=== PATIENT | male | born 1985 | race Caucasian/White ===

== ENCOUNTER 2019-05-08 11:04 | Emergency (ER) | payer OTHER ==
[~2019-05-08] VITALS: Ht 182.9 cm; Wt 108.9 kg
[~2019-05-08 11:04] MED LIST: ABAC300; AMOCLA875 PO; AMOX500 PO; ARIP10; ARIP10 PO; AZIT500 PO; Amoxicillin500 MG PO; BACL10 PO; BUPR150ER; Bactrim Ds Tab1 EACH PO; CEPH500 PO; CHLO25 PO; CLOT1TC TOP; CODGUAEL PO; CRUTCH3 USE; FLUO10; FLUO10 PO; Flagyl500 MG PO; GABA300 PO; HYDACE5 PO; HYDACE7.5 PO; HYDPAM25 PO; IBUHYD PO; IBUP600 PO; IBUP800; IBUP800 PO; Keflex500 MG PO; LAMO25; LORA1 PO; METPRE4DP PO; NAPR500 PO; OXYACE5T PO; OXYACE7.5T PO; PENVK500 PO; PROACE100 PO; PROM25 PO; PROZAC20 MG PO; Percocet 5-3251 EACH PO; QUET25; QUET300 PO; RISP1 PO; RXANTBENOT AS; RXHYDACE PO; RXTRAM50 PO; Robaxin500 MG PO; SULTRIDS PO; TRAM50 PO; VENL75; Valium5 MG PO
[2019-05-08 13:40] LABS: BASOPHILS ABSOLUTE AUTO 0.03 K/mm3 (0.00-0.23); BASOPHILS PERCENT AUTO 1 % (0-2); EOSINOPHILS ABSOLUTE AUTO 0.09 K/mm3 (0.00-0.68); EOSINOPHILS PERCENT AUTO 2 % (0-6); Hematocrit 45.2 % (37.0-53.0); Hemoglobin 15.9 g/dL (13.5-17.5); IMMATURE GRAN ABSOLUTE AUTO 0.02 K/mm3 (0.00-0.10); IMMATURE GRAN PERCENT AUTO 0 % (0-1); LYMPHOCYTES ABSOLUTE AUTO 1.07 K/mm3 (0.84-5.20); LYMPHOCYTES PERCENT AUTO 18 % (21-46); MONOCYTES ABSOLUTE AUTO 0.69 K/mm3 (0.16-1.47); MONOCYTES PERCENT AUTO 12 % (4-13); Mean Corpuscular HGB 30.3 pg (26.0-34.0); Mean Corpuscular HGB Conc 35.2 g/dL (31.5-36.5); Mean Corpuscular Volume 86 fL (80-100); Mean Platelet Volume 9.5 fL (9.1-12.4); NEUTROPHILS ABSOLUTE AUTO 3.97 K/mm3 (1.96-9.15); NEUTROPHILS PERCENT AUTO 68 % (41-73); Platelet Count 194 K/mm3 (150-400); RDW Coefficient Variation 12.5 % (11.7-14.2); RDW Standard Deviation 39.2 fL (35.1-46.3); Red Blood Cell Count 5.25 M/mm3 (4.30-5.90); White Blood Cell Count 5.87 K/mm3 (4.00-11.30)
[2019-05-08 13:53] LABS: Anion Gap 6 mmol/L (6-16); Blood Urea Nitrogen 12 mg/dL (8-24); Bun/Creatinine Ratio 13.9 (12.0-20.0); CO2, Blood 26 mmol/L (21-32); Chloride, Blood 103 mmol/L (98-108); Creatinine, Blood 0.86 mg/dL (0.60-1.20); Glomerular Filtration Rate >60 (60-); Glucose, Blood 101 mg/dL (70-99); Potassium, Blood 3.8 mmol/L (3.5-5.5); Sodium, Blood 135 mmol/L (136-145)
[2019-05-08] MEDS ORDERED: Bactrim Ds Tab1 EACH PO (15:22)
[2019-05-08] MEDS ORDERED: KETO10 PO (15:22)
[2019-05-08] MEDS ORDERED: Keflex500 MG PO (15:22)
== END 2019-05-08 15:38 | disposition home or self-care (01) ==
LOC: ER 11:04
PROVIDERS: Physician Assistant
DX: M25.521 Pain in right elbow (principal); F31.9 Bipolar disorder, unspecified; F17.200 Nicotine dependence, unspecified, uncomplicated
CPT/HCPCS: 36415; 73080; 73201; 80048; 85025; 85651; 86140; 96361; 96374-59; 99284-25; J1885; J7120; Q9967

== ENCOUNTER 2019-05-11 12:01 | Emergency (ER) | payer OTHER ==
[~2019-05-11] VITALS: Ht 182.9 cm; Wt 108.9 kg
[~2019-05-11 12:01] MED LIST changes: +KETO10 PO
[2019-05-11 13:17] LABS: BASOPHILS ABSOLUTE AUTO 0.05 K/mm3 (0.00-0.23); BASOPHILS PERCENT AUTO 1 % (0-2); EOSINOPHILS ABSOLUTE AUTO 0.13 K/mm3 (0.00-0.68); EOSINOPHILS PERCENT AUTO 2 % (0-6); Hematocrit 43.5 % (37.0-53.0); Hemoglobin 14.6 g/dL (13.5-17.5); IMMATURE GRAN ABSOLUTE AUTO 0.03 K/mm3 (0.00-0.10); IMMATURE GRAN PERCENT AUTO 1 % (0-1); LYMPHOCYTES ABSOLUTE AUTO 1.62 K/mm3 (0.84-5.20); LYMPHOCYTES PERCENT AUTO 25 % (21-46); MONOCYTES PERCENT AUTO 9 % (4-13); Mean Corpuscular HGB 30.4 pg (26.0-34.0); Mean Corpuscular HGB Conc 33.6 g/dL (31.5-36.5); Mean Platelet Volume 9.3 fL (9.1-12.4); NEUTROPHILS ABSOLUTE AUTO 4.05 K/mm3 (1.96-9.15); NEUTROPHILS PERCENT AUTO 62 % (41-73); Platelet Count 253 K/mm3 (150-400); RDW Coefficient Variation 12.4 % (11.7-14.2); RDW Standard Deviation 41.5 fL (35.1-46.3); Red Blood Cell Count 4.81 M/mm3 (4.30-5.90); White Blood Cell Count 6.48 K/mm3 (4.00-11.30)
[2019-05-11 13:29] LABS: Mean Corpuscular Volume 90 fL (80-100)
[2019-05-11 13:38] LABS: Alanine Aminotransfer (ALT/SGP 30 U/L (12-78); Albumin, Blood 3.5 g/dL (3.4-5.0); Albumin/Globulin Ratio 0.8 (0.8-1.8); Alk Phos 103 U/L (50-136); Anion Gap 8 mmol/L (6-16); Aspartate Aminotrans (AST/SGOT 26 U/L (12-37); Bilirubin, Total 0.4 mg/dL (0.1-1.0); Blood Urea Nitrogen 15 mg/dL (8-24); Bun/Creatinine Ratio 15.4 (12.0-20.0); CO2, Blood 21 mmol/L (21-32); Calcium, Blood 9.1 mg/dL (8.5-10.1); Chloride, Blood 109 mmol/L (98-108); Creatinine, Blood 0.97 mg/dL (0.60-1.20); Globulin, Blood 4.5 g/dL (2.2-4.0); Glomerular Filtration Rate >60 (60-); Glucose, Blood 88 mg/dL (70-99); Potassium, Blood 4.7 mmol/L (3.5-5.5); Sodium, Blood 138 mmol/L (136-145)
[2019-05-11] MEDS ORDERED: Ultram50 MG PO (14:35)
[2019-05-11] MEDS ORDERED: NAPR550 PO (14:35)
== END 2019-05-11 14:49 | disposition home or self-care (01) ==
LOC: ER 12:01
PROVIDERS: Physician Assistant
DX: M25.521 Pain in right elbow (principal); F31.9 Bipolar disorder, unspecified; F17.200 Nicotine dependence, unspecified, uncomplicated
CPT/HCPCS: 36415; 76882; 80053; 85025; 85651; 86140; 99284-25

== ENCOUNTER → 2019-12-22 | Outpatient (CLI) | payer OTHER ==
[~2019-12-22] MED LIST changes: +NAPR550 PO; +Ultram50 MG PO
== END | disposition home or self-care (01) ==
LOC: LAB SHORT 18:02 → LAB EV 18:02
DX: L02.416 Cutaneous abscess of left lower limb (principal)
CPT/HCPCS: 87070; 87077; 87147; 87186; 87205

== ENCOUNTER 2020-12-29 23:24 | Observation (INO) | payer OTHER ==
[~2020-12-29] VITALS: Ht 182.9 cm; Wt 111.6 kg
[2020-12-29] MEDS ORDERED: CYCL10 PO (23:55)
[2020-12-29] MEDS ORDERED: Prozac20 MG PO (23:55)
[2020-12-29] MEDS ORDERED: ARIP10 PO (23:56)
[2020-12-29] MEDS ORDERED: [UNRECOGNIZED DRUG - OTHER] PO (23:57)
[2020-12-30 00:20] LABS: Source, Urine Clean Catch
[2020-12-30 00:23] LABS: Blood, Urine 1+ (Neg); Glucose Qualitative, Urine Neg (Neg); Ketones, Urine 1+ (Neg); Leukocyte Esterase, Urine 1+ (Neg); Nitrite, Urine Pos (Neg); Protein, Urine 2+ (Neg); Urobilinogen, Urine 4+ (Normal)
[2020-12-30 00:28] LABS: Appearance, Urine Clear (Clear); Bilirubin, Urine 3+ (Neg); Color, Urine Amber (P-Yellow)
[2020-12-30 00:29] LABS: Bacteria Mod /hpf; Red Blood Cells, Urine 0-2 /hpf (0-2); Squamous Epithelial Cells Not Seen /hpf (Few); White Blood Cells, Urine 0-2 /hpf (0-5)
[2020-12-30 02:36] LABS: BASOPHILS ABSOLUTE AUTO 0.09 K/mm3 (0.00-0.23); BASOPHILS PERCENT AUTO 2 % (0-2); EOSINOPHILS ABSOLUTE AUTO 0.15 K/mm3 (0.00-0.68); EOSINOPHILS PERCENT AUTO 3 % (0-6); Hematocrit 43.9 % (37.0-53.0); Hemoglobin 15.1 g/dL (13.5-17.5); Mean Corpuscular HGB 30.4 pg (26.0-34.0); Mean Corpuscular HGB Conc 34.4 g/dL (31.5-36.5); Mean Corpuscular Volume 88 fL (80-100); Mean Platelet Volume 9.5 fL (9.1-12.4); Platelet Count 174 K/mm3 (150-400); RDW Coefficient Variation 12.7 % (11.7-14.2); RDW Standard Deviation 41.4 fL (35.1-46.3); Red Blood Cell Count 4.97 M/mm3 (4.30-5.90); White Blood Cell Count 4.41 K/mm3 (4.00-11.30)
[2020-12-30 02:37] LABS: IMMATURE GRAN ABSOLUTE AUTO 0.04 K/mm3 (0.00-0.10); IMMATURE GRAN PERCENT AUTO 1 % (0-1); LYMPHOCYTES ABSOLUTE AUTO 1.76 K/mm3 (0.84-5.20); LYMPHOCYTES PERCENT AUTO 40 % (21-46); MONOCYTES ABSOLUTE AUTO 0.51 K/mm3 (0.16-1.47); MONOCYTES PERCENT AUTO 12 % (4-13); NEUTROPHILS ABSOLUTE AUTO 1.86 K/mm3 (1.96-9.15); NEUTROPHILS PERCENT AUTO 42 % (41-73)
[2020-12-30 02:49] LABS: Alanine Aminotransfer (ALT/SGP 709 U/L (12-78); Albumin, Blood 3.5 g/dL (3.4-5.0); Albumin/Globulin Ratio 0.7 (0.8-1.8); Alk Phos 282 U/L (50-136); Anion Gap 6 mmol/L (6-16); Aspartate Aminotrans (AST/SGOT 310 U/L (12-37); Bilirubin, Total 2.5 mg/dL (0.1-1.0); Blood Urea Nitrogen 8 mg/dL (8-24); Bun/Creatinine Ratio 9.2 (12.0-20.0); CO2, Blood 28 mmol/L (21-32); Calcium, Blood 8.9 mg/dL (8.5-10.1); Chloride, Blood 103 mmol/L (98-108); Creatinine, Blood 0.87 mg/dL (0.60-1.20); Globulin, Blood 4.7 g/dL (2.2-4.0); Glomerular Filtration Rate >60 (60-); Glucose, Blood 121 mg/dL (70-99); Potassium, Blood 3.8 mmol/L (3.5-5.5); Sodium, Blood 137 mmol/L (136-145); Total Protein, Blood 8.2 g/dL (6.4-8.2)
[2020-12-30 03:44] LABS: Troponin I <0.015 ng/mL (0.000-0.040)
--- NOTE | 2020-12-30 07:36 | NUR ---
ER REPORT RECEIVED FROM BRITTNEY INGRAM. REPORT GIVEN TO PHIL QUEEN RN. PT ARRIVED TO ROOM VIA W/C. NO DISTRESS NOTED.
--- NOTE | 2020-12-30 11:00 | NUR ---
CARE COORDINATION REFERRAL - ADMIT:12/29/20 DISCHARGE: DX:BLOOD IN THE URINE, EPIGASTRIC PAIN, LEFT FLANK PAIN. CC: JUAN C CALL: PT AT HOME RESIDENCE: HOME CAREGIVER: SELF DX: PSYCHOTIC DISORDER, HIV EXPOSURE, METH USE, VIRAL HEP C, DME: NONE CCM: NONE HOME HEALTH: NONE
[2020-12-30 13:16] LABS: Influenza A, PCR NEGATIVE (NEGATIVE); Influenza B, PCR NEGATIVE (NEGATIVE); Resp Syncytial Virus, PCR NEGATIVE (NEGATIVE); SARS-Cov-2 (COVID-19) PCR, MMC NEGATIVE (NEGATIVE)
--- NOTE | 2020-12-30 13:30 | NUR ---
surgery: PT TO THE OR AT THIS TIME. 18G STARTED WITH LR AT TKO. PT VOIDED AND CHANGED INTO GOWN. SURGICAL PKT COMPLETED. COVID NEGATIVE. WILL CONT TO MONITOR WHEN RETURNS TO ROOM.
--- NOTE | 2020-12-30 13:30 | NUR ---
PT TO SDS FROM 231. CONFIRMS NPO STATUS. ABD AND GROIN PREPPED PER ORDERS. History, Chart, Medications and Allergies reviewed before start of procedure. Lungs clear T/O to Auscultation. VOIDS APPROX 100 CC OF ARLIN URINE.
--- NOTE | 2020-12-30 14:29 | NUR ---
12/30/20 1429 ATIFOLI PT RECEIVED SCHEULED DOSE OF ANTIBIOTIC PRIOR TO PROCEDURE, DR AWARE. NO NEW ORDERS AT THIS TIME.
--- NOTE | 2020-12-30 18:32 | NUR ---
PT POST OP TODAY FOR LAP JAYME. HYPERTENSIVE AT TIMES. PT HAS HAD 300CC URINE OUTPUT, DARK. NO BLOOD. IV FLUIDS RESUMED POST OP. GUY CLEAR DIET. PAIN MANAGED WITH PO PAIN MEDS. ABD GAUZE X4, CDI. NO NAUSEA. PT INDEP IN ROOM. USES CALL LIGHT APPROPRIATELY NEEDED.
--- NOTE | 2020-12-31 04:08 | NUR ---
SHIFT SUMMARY: PT POD#1 FOR LAP JAYME. LAP SITES C/D/I. PT MEDICATED WITH PO PAIN MEDS. PAIN WELL MANAGED THROUGHOUT NIGHT. DENIES N/V. PT GUY REGULAR DIET. INDEPENDENT IN ROOM. PT VOIDING ADEQUATE AMOUNT. URINE DARK AND CONCENTRATED. NO BLOOD NOTED. IVF INFUSING PER ORDERS.
[2020-12-31 05:17] LABS: BASOPHILS ABSOLUTE AUTO 0.05 K/mm3 (0.00-0.23); BASOPHILS PERCENT AUTO 1 % (0-2); EOSINOPHILS ABSOLUTE AUTO 0.02 K/mm3 (0.00-0.68); EOSINOPHILS PERCENT AUTO 0 % (0-6); Hematocrit 42.1 % (37.0-53.0); Hemoglobin 13.9 g/dL (13.5-17.5); Mean Corpuscular HGB 29.9 pg (26.0-34.0); Mean Corpuscular Volume 91 fL (80-100); Mean Platelet Volume 9.6 fL (9.1-12.4); Platelet Count 179 K/mm3 (150-400); RDW Coefficient Variation 12.9 % (11.7-14.2); RDW Standard Deviation 42.5 fL (35.1-46.3); Red Blood Cell Count 4.65 M/mm3 (4.30-5.90); White Blood Cell Count 8.86 K/mm3 (4.00-11.30)
[2020-12-31 05:29] LABS: IMMATURE GRAN ABSOLUTE AUTO 0.05 K/mm3 (0.00-0.10); IMMATURE GRAN PERCENT AUTO 1 % (0-1); LYMPHOCYTES ABSOLUTE AUTO 3.43 K/mm3 (0.84-5.20); LYMPHOCYTES PERCENT AUTO 39 % (21-46); MONOCYTES ABSOLUTE AUTO 0.42 K/mm3 (0.16-1.47); MONOCYTES PERCENT AUTO 5 % (4-13); NEUTROPHILS ABSOLUTE AUTO 4.89 K/mm3 (1.96-9.15); NEUTROPHILS PERCENT AUTO 55 % (41-73)
[2020-12-31 05:47] LABS: Alanine Aminotransfer (ALT/SGP 583 U/L (12-78); Albumin, Blood 2.8 g/dL (3.4-5.0); Albumin/Globulin Ratio 0.7 (0.8-1.8); Alk Phos 272 U/L (50-136); Anion Gap 8 mmol/L (6-16); Aspartate Aminotrans (AST/SGOT 211 U/L (12-37); Bilirubin, Total 2.2 mg/dL (0.1-1.0); Blood Urea Nitrogen 11 mg/dL (8-24); Bun/Creatinine Ratio 14.4 (12.0-20.0); CO2, Blood 26 mmol/L (21-32); Calcium, Blood 8.3 mg/dL (8.5-10.1); Chloride, Blood 104 mmol/L (98-108); Creatinine, Blood 0.76 mg/dL (0.60-1.20); Glomerular Filtration Rate >60 (60-); Glucose, Blood 168 mg/dL (70-99); Potassium, Blood 4.1 mmol/L (3.5-5.5); Sodium, Blood 138 mmol/L (136-145); Total Protein, Blood 6.8 g/dL (6.4-8.2)
--- NOTE | 2020-12-31 16:38 | NUR ---
Resumed care of patient
--- NOTE | 2021-01-01 03:14 | NUR ---
SHIFT SUMMARY: PT POD#2 FOR LAP JAYME. PT REPORTS PASSING FLATUS. HYPOACTIVE BT THROUGHOUT. PT INDEPENDENT IN ROOM. AMBULATED IN HALLWAY ONCE. DENIES PAIN THIS SHIFT AND NOT REQUIRING PAIN MEDICATION. DENIES N/V AND TOLERATING PO. AWAITING MORNING LABS. POSSIBLE DISCHARGE TODAY.
[2021-01-01 05:30] LABS: BASOPHILS ABSOLUTE AUTO 0.05 K/mm3 (0.00-0.23); BASOPHILS PERCENT AUTO 1 % (0-2); EOSINOPHILS ABSOLUTE AUTO 0.11 K/mm3 (0.00-0.68); EOSINOPHILS PERCENT AUTO 2 % (0-6); Hemoglobin 14.3 g/dL (13.5-17.5); IMMATURE GRAN ABSOLUTE AUTO 0.06 K/mm3 (0.00-0.10); IMMATURE GRAN PERCENT AUTO 1 % (0-1); LYMPHOCYTES ABSOLUTE AUTO 2.82 K/mm3 (0.84-5.20); LYMPHOCYTES PERCENT AUTO 54 % (21-46); MONOCYTES ABSOLUTE AUTO 0.43 K/mm3 (0.16-1.47); MONOCYTES PERCENT AUTO 8 % (4-13); Mean Corpuscular HGB 30.8 pg (26.0-34.0); Mean Corpuscular Volume 90 fL (80-100); Mean Platelet Volume 9.4 fL (9.1-12.4); NEUTROPHILS ABSOLUTE AUTO 1.71 K/mm3 (1.96-9.15); NEUTROPHILS PERCENT AUTO 33 % (41-73); Platelet Count 174 K/mm3 (150-400); RDW Coefficient Variation 13.3 % (11.7-14.2); RDW Standard Deviation 44.8 fL (35.1-46.3); Red Blood Cell Count 4.65 M/mm3 (4.30-5.90); White Blood Cell Count 5.18 K/mm3 (4.00-11.30)
[2021-01-01 05:56] LABS: Alanine Aminotransfer (ALT/SGP 664 U/L (12-78); Albumin, Blood 2.9 g/dL (3.4-5.0); Albumin/Globulin Ratio 0.8 (0.8-1.8); Alk Phos 284 U/L (50-136); Anion Gap 6 mmol/L (6-16); Aspartate Aminotrans (AST/SGOT 306 U/L (12-37); Bilirubin, Total 1.3 mg/dL (0.1-1.0); Blood Urea Nitrogen 14 mg/dL (8-24); Bun/Creatinine Ratio 15.7 (12.0-20.0); CO2, Blood 27 mmol/L (21-32); Calcium, Blood 8.3 mg/dL (8.5-10.1); Chloride, Blood 108 mmol/L (98-108); Creatinine, Blood 0.89 mg/dL (0.60-1.20); Globulin, Blood 3.8 g/dL (2.2-4.0); Glomerular Filtration Rate >60 (60-); Glucose, Blood 90 mg/dL (70-99); Potassium, Blood 4.2 mmol/L (3.5-5.5); Sodium, Blood 141 mmol/L (136-145); Total Protein, Blood 6.7 g/dL (6.4-8.2)
--- NOTE | 2021-01-01 12:03 | NUR ---
Patient left AMA. IV out. Educated on risks of leaving. Patient verbalized understand signed AMA form. Patient to follow up with surgery.
--- NOTE | 2021-01-01 16:34 | NUR ---
SUMMARY: Admit: 12/29/20 01/01/21 Patient left AMA. IV out. Educated on risks of leaving. Patient verbalized understand signed AMA form. Patient to follow up with surgery. Note copied from floor nurse on 01/01/21, Zoltan did not meet with patient prior to leaving AMA. Patient will need to call Zoltan to schedule appointment for follow up. [email or web address]
[2021-01-04 10:17] LABS: HCV LOG10 4.179 (.); HEPATITIS C GENOTYPE 1a (.); HEPATITIS C QUANTITATION 15100 IU/mL (.)
== END 2021-01-01 12:00 | disposition left against medical advice (07) ==
LOC: ER 23:24 → SURS 23:25
PROVIDERS: Emergency Medicine; Internal Medicine; Surgery; ADMIT Family Medicine
DX: K80.12 Calculus of gallbladder with acute and chronic cholecystitis without obstruction (principal); K82.8 Other specified diseases of gallbladder; R74.01 Elevation of levels of liver transaminase levels; G89.29 Other chronic pain; N39.0 Urinary tract infection, site not specified; M54.42 Lumbago with sciatica, left side; R31.9 Hematuria, unspecified; F31.9 Bipolar disorder, unspecified; F12.90 Cannabis use, unspecified, uncomplicated; F17.210 Nicotine dependence, cigarettes, uncomplicated; F15.10 Other stimulant abuse, uncomplicated; K21.9 Gastro-esophageal reflux disease without esophagitis; B19.20 Unspecified viral hepatitis C without hepatic coma; E66.9 Obesity, unspecified; Z20.822 Contact with and (suspected) exposure to COVID-19; Z68.33 Body mass index [BMI] 33.0-33.9, adult; Z53.29 Procedure and treatment not carried out because of patient's decision for other reasons; Z79.899 Other long term (current) drug therapy
CPT/HCPCS: 0241U; 36415; 74177; 74181; 76705; 80053; 81001; 83690; 84484; 85025; 87086; 87522; 88304; 93005; 93010; 96365; 96375; 96376; 99284-25; A9270; G0378; J0696; J1100; J1885; J2250; J2270; J2405; J2710; J3010; J7030; J7120; Q9967

== ENCOUNTER 2021-01-06 19:50 | Emergency (ER) | payer OTHER ==
[~2021-01-06] VITALS: Ht 182.9 cm; Wt 108.9 kg
[~2021-01-06 19:50] MED LIST changes: +CYCL10 PO; +Prozac20 MG PO; +[UNRECOGNIZED DRUG - OTHER] PO
[2021-01-06] MEDS ORDERED: CEPH500 PO (21:05)
== END 2021-01-06 21:13 | disposition home or self-care (01) ==
LOC: ER 19:50
DX: S61.532A Puncture wound without foreign body of left wrist, initial encounter (principal); F17.210 Nicotine dependence, cigarettes, uncomplicated; W27.0XXA Contact with workbench tool, initial encounter
CPT/HCPCS: 99282; A9270

== ENCOUNTER 2021-01-07 01:40 | Emergency (ER) | payer OTHER | END 2021-01-07 02:08 | disposition left against medical advice (07) | LOC: ER 01:40 | DX: Z53.21 Procedure and treatment not carried out due to patient leaving prior to being seen by health care provider (principal) ==

== ENCOUNTER 2021-01-19 17:03 | Emergency (ER) | payer OTHER ==
[~2021-01-19] VITALS: Ht 182.9 cm; Wt 104.3 kg
[2021-01-19 17:25] LABS: BASOPHILS ABSOLUTE AUTO 0.06 K/mm3 (0.00-0.23); BASOPHILS PERCENT AUTO 1 % (0-2); EOSINOPHILS ABSOLUTE AUTO 0.12 K/mm3 (0.00-0.68); EOSINOPHILS PERCENT AUTO 2 % (0-6); Hemoglobin 15.2 g/dL (13.5-17.5); IMMATURE GRAN ABSOLUTE AUTO 0.02 K/mm3 (0.00-0.10); IMMATURE GRAN PERCENT AUTO 0 % (0-1); LYMPHOCYTES ABSOLUTE AUTO 2.19 K/mm3 (0.84-5.20); LYMPHOCYTES PERCENT AUTO 40 % (21-46); MONOCYTES ABSOLUTE AUTO 0.47 K/mm3 (0.16-1.47); MONOCYTES PERCENT AUTO 9 % (4-13); Mean Corpuscular HGB 30.8 pg (26.0-34.0); Mean Corpuscular HGB Conc 35.3 g/dL (31.5-36.5); Mean Corpuscular Volume 87 fL (80-100); Mean Platelet Volume 9.3 fL (9.1-12.4); NEUTROPHILS ABSOLUTE AUTO 2.59 K/mm3 (1.96-9.15); NEUTROPHILS PERCENT AUTO 48 % (41-73); Platelet Count 285 K/mm3 (150-400); RDW Coefficient Variation 12.5 % (11.7-14.2); RDW Standard Deviation 39.8 fL (35.1-46.3); Red Blood Cell Count 4.94 M/mm3 (4.30-5.90); White Blood Cell Count 5.45 K/mm3 (4.00-11.30)
[2021-01-19 17:52] LABS: Alanine Aminotransfer (ALT/SGP 74 U/L (12-78); Albumin, Blood 3.5 g/dL (3.4-5.0); Albumin/Globulin Ratio 0.8 (0.8-1.8); Alk Phos 105 U/L (50-136); Anion Gap 6 mmol/L (6-16); Aspartate Aminotrans (AST/SGOT 67 U/L (12-37); Bilirubin, Total 0.8 mg/dL (0.1-1.0); Blood Urea Nitrogen 14 mg/dL (8-24); Bun/Creatinine Ratio 16.6 (12.0-20.0); CO2, Blood 25 mmol/L (21-32); Calcium, Blood 9.4 mg/dL (8.5-10.1); Chloride, Blood 107 mmol/L (98-108); Creatinine, Blood 0.84 mg/dL (0.60-1.20); Globulin, Blood 4.6 g/dL (2.2-4.0); Glomerular Filtration Rate >60 (60-); Glucose, Blood 129 mg/dL (70-99); Potassium, Blood 4.9 mmol/L (3.5-5.5); Sodium, Blood 138 mmol/L (136-145); Total Protein, Blood 8.1 g/dL (6.4-8.2)
[2021-01-19 19:04] LABS: Source, Urine Clean Catch
[2021-01-19 19:07] LABS: Appearance, Urine Clear (Clear); Bilirubin, Urine Neg (Neg); Blood, Urine Neg (Neg); Color, Urine Yellow (P-Yellow); Glucose Qualitative, Urine Neg (Neg); Ketones, Urine Neg (Neg); Leukocyte Esterase, Urine Neg (Neg); Nitrite, Urine Neg (Neg); Protein, Urine Neg (Neg); Urobilinogen, Urine 2+ (Normal); pH, Urine 6.5 (5.0-8.0)
[2021-01-19 19:22] LABS: U Amphetamine Screen DETECTED; U Barbituate Screen Not Detected; U Benzodiazapine Screen Not Detected; U Buprenorphine Screen Not Detected; U Cannabinoids Screen DETECTED; U Cocaine Screen Not Detected; U Methadone Screen Not Detected; U Methamphetamine Screen DETECTED; U Opiates Screen Not Detected; U Oxycodone Screen Not Detected; U Phencyclidine Screen Not Detected; U Propoxyphene Screen Not Detected
== END 2021-01-19 20:15 | disposition home or self-care (01) ==
LOC: ER 17:03
PROVIDERS: Emergency Medicine
DX: F15.129 Other stimulant abuse with intoxication, unspecified (principal); F17.210 Nicotine dependence, cigarettes, uncomplicated; Z79.899 Other long term (current) drug therapy; Z98.890 Other specified postprocedural states
CPT/HCPCS: 80053; 81003; 83690; 85025; 99284; J7030

== ENCOUNTER 2021-05-02 04:15 | Emergency (ER) | payer OTHER ==
[~2021-05-02] VITALS: Ht 182.9 cm; Wt 104.3 kg
== END 2021-05-02 06:25 | disposition home or self-care (01) ==
LOC: ER 04:15
DX: F15.10 Other stimulant abuse, uncomplicated (principal); Z79.899 Other long term (current) drug therapy
CPT/HCPCS: 96372; 99284-25; J1885

== ENCOUNTER 2021-09-11 17:28 | Emergency (ER) | payer OTHER ==
[~2021-09-11] VITALS: Ht 177.8 cm; Wt 83.9 kg
[2021-09-11 18:45] LABS: Alanine Aminotransfer (ALT/SGP 30 U/L (12-78); Albumin, Blood 3.8 g/dL (3.4-5.0); Albumin/Globulin Ratio 0.9 (0.8-1.8); Alk Phos 73 U/L (50-136); Anion Gap 2 mmol/L (6-16); Aspartate Aminotrans (AST/SGOT 31 U/L (12-37); BASOPHILS ABSOLUTE AUTO 0.04 K/mm3 (0.00-0.23); BASOPHILS PERCENT AUTO 1 % (0-2); Bilirubin, Total 0.9 mg/dL (0.1-1.0); Blood Urea Nitrogen 16 mg/dL (8-24); Bun/Creatinine Ratio 13.8 (12.0-20.0); CO2, Blood 29 mmol/L (21-32); Calcium, Blood 9.5 mg/dL (8.5-10.1); Chloride, Blood 107 mmol/L (98-108); Creatinine, Blood 1.16 mg/dL (0.60-1.20); EOSINOPHILS ABSOLUTE AUTO 0.15 K/mm3 (0.00-0.68); EOSINOPHILS PERCENT AUTO 3 % (0-6); Globulin, Blood 4.1 g/dL (2.2-4.0); Glomerular Filtration Rate >60 (60-); Glucose, Blood 81 mg/dL (70-99); Hematocrit 43.5 % (37.0-53.0); Hemoglobin 15.1 g/dL (13.5-17.5); IMMATURE GRAN ABSOLUTE AUTO 0.02 K/mm3 (0.00-0.10); IMMATURE GRAN PERCENT AUTO 0 % (0-1); LYMPHOCYTES ABSOLUTE AUTO 1.57 K/mm3 (0.84-5.20); LYMPHOCYTES PERCENT AUTO 29 % (21-46); MONOCYTES ABSOLUTE AUTO 0.66 K/mm3 (0.16-1.47); MONOCYTES PERCENT AUTO 12 % (4-13); Mean Corpuscular HGB Conc 34.7 g/dL (31.5-36.5); Mean Corpuscular Volume 86 fL (80-100); Mean Platelet Volume 9.1 fL (9.1-12.4); NEUTROPHILS PERCENT AUTO 54 % (41-73); Platelet Count 238 K/mm3 (150-400); Potassium, Blood 3.6 mmol/L (3.5-5.5); RDW Coefficient Variation 12.5 % (11.7-14.2); RDW Standard Deviation 39.6 fL (35.1-46.3); Red Blood Cell Count 5.04 M/mm3 (4.30-5.90); Sodium, Blood 138 mmol/L (136-145); Total Protein, Blood 7.9 g/dL (6.4-8.2); White Blood Cell Count 5.34 K/mm3 (4.00-11.30)
== END 2021-09-11 19:59 | disposition home or self-care (01) ==
LOC: ER 17:28
PROVIDERS: Physician Assistant
DX: Z00.00 Encounter for general adult medical examination without abnormal findings (principal); F17.210 Nicotine dependence, cigarettes, uncomplicated
CPT/HCPCS: 80053; 83690; 85025; 99284

== ENCOUNTER 2021-11-10 20:53 | Emergency (ER) | payer OTHER ==
[~2021-11-10] VITALS: Ht 182.9 cm; Wt 90.7 kg
== END 2021-11-10 22:53 | disposition home or self-care (01) ==
LOC: ER 20:53
DX: M25.571 Pain in right ankle and joints of right foot (principal); F17.210 Nicotine dependence, cigarettes, uncomplicated
CPT/HCPCS: 29515; 73610; 99283-25; A9270

== ENCOUNTER 2022-03-19 14:47 | Emergency (ER) | payer OTHER ==
[~2022-03-19] VITALS: Ht 182.9 cm; Wt 97.5 kg
[2022-03-19 16:09] LABS: Influenza A, PCR NEGATIVE (NEGATIVE); Influenza B, PCR NEGATIVE (NEGATIVE); Resp Syncytial Virus, PCR NEGATIVE (NEGATIVE); SARS-Cov-2 (COVID-19) PCR, MMC NEGATIVE (NEGATIVE)
== END 2022-03-19 16:21 | disposition home or self-care (01) ==
LOC: ER 14:47
PROVIDERS: Physician Assistant
DX: R51.9 Headache, unspecified (principal); R53.1 Weakness; F17.210 Nicotine dependence, cigarettes, uncomplicated
CPT/HCPCS: 0241U; 99283

== ENCOUNTER → 2022-07-07 | Outpatient (CLI) | payer OTHER ==
[~2022-07-07] MED LIST changes: +NALOXONE HC1 MG/1 ML IM
== END ==
LOC: LAB SHORT 13:47 → PLD 13:47
DX: R21 Rash and other nonspecific skin eruption (principal)
CPT/HCPCS: 88312

== ENCOUNTER 2023-06-23 22:38 | Emergency (ER) | payer OTHER ==
[~2023-06-23] VITALS: Ht 175.3 cm; Wt 73.5 kg
[~2023-06-23 22:38] MED LIST changes: +NARCAN4 M1
[2023-06-24] MEDS ORDERED: NARCAN4 M1 (01:20)
[2023-06-24 01:44] VITALS: BP 125/75
== END 2023-06-24 01:53 | disposition home or self-care (01) ==
LOC: ER 22:38
DX: T40.411A Poisoning by fentanyl or fentanyl analogs, accidental (unintentional), initial encounter (principal); F17.210 Nicotine dependence, cigarettes, uncomplicated; X58.XXXA Exposure to other specified factors, initial encounter
CPT/HCPCS: 93005; 93010; 99283-25; A9270

== ENCOUNTER 2023-06-28 04:03 | Emergency (ER) | payer OTHER ==
[~2023-06-28] VITALS: Ht 182.9 cm; Wt 83.9 kg
[2023-06-28 04:30] VITALS: BP 136/89
[2023-06-28] MEDS ORDERED: NARCAN4 M1 (05:03)
== END 2023-06-28 04:47 | disposition left against medical advice (07) ==
LOC: ER 04:03
DX: T40.411A Poisoning by fentanyl or fentanyl analogs, accidental (unintentional), initial encounter (principal); F17.210 Nicotine dependence, cigarettes, uncomplicated; Z53.29 Procedure and treatment not carried out because of patient's decision for other reasons
CPT/HCPCS: 99284

== ENCOUNTER 2024-02-27 10:15 | Emergency (ER) | payer OTHER ==
[~2024-02-27] VITALS: Ht 182.9 cm; Wt 90.7 kg
[2024-02-27 10:53] LABS: BASOPHILS ABSOLUTE AUTO 0.03 K/mm3 (0.00-0.23); BASOPHILS PERCENT AUTO 1 % (0-2); EOSINOPHILS ABSOLUTE AUTO 0.14 K/mm3 (0.00-0.68); EOSINOPHILS PERCENT AUTO 2 % (0-6); Hemoglobin 14.9 g/dL (13.5-17.5); IMMATURE GRAN ABSOLUTE AUTO 0.01 K/mm3 (0.00-0.10); IMMATURE GRAN PERCENT AUTO 0 % (0-1); LYMPHOCYTES ABSOLUTE AUTO 1.58 K/mm3 (0.84-5.20); LYMPHOCYTES PERCENT AUTO 24 % (21-46); MONOCYTES ABSOLUTE AUTO 0.68 K/mm3 (0.16-1.47); MONOCYTES PERCENT AUTO 10 % (4-13); Mean Corpuscular HGB 30.1 pg (26.0-34.0); Mean Corpuscular HGB Conc 35.5 g/dL (31.5-36.5); Mean Corpuscular Volume 85 fL (80-100); Mean Platelet Volume 9.2 fL (9.1-12.4); NEUTROPHILS ABSOLUTE AUTO 4.09 K/mm3 (1.96-9.15); NEUTROPHILS PERCENT AUTO 63 % (41-73); Platelet Count 243 K/mm3 (150-400); RDW Coefficient Variation 12.8 % (11.7-14.2); RDW Standard Deviation 39.4 fL (35.1-46.3); Red Blood Cell Count 4.95 M/mm3 (4.30-5.90); White Blood Cell Count 6.53 K/mm3 (4.00-11.30)
[2024-02-27 11:15] LABS: Albumin, Blood 3.5 g/dL (3.4-5.0); Albumin/Globulin Ratio 0.9 (0.8-1.8); Bilirubin, Total 0.6 mg/dL (0.1-1.0); Bun/Creatinine Ratio 15.9 (12.0-20.0); Calcium, Blood 8.8 mg/dL (8.5-10.1); Creatinine, Blood 0.88 mg/dL (0.60-1.20); Globulin, Blood 3.8 g/dL (2.2-4.0); Potassium, Blood 3.9 mmol/L (3.5-5.5); Total Protein, Blood 7.3 g/dL (6.4-8.2)
[2024-02-27] MEDS ORDERED: Ondansetron HCl 2 MG / ML 2ML Vial IV ONE (11:30)
[2024-02-27] MEDS ORDERED: NS 1,000 ML IV SCH (11:30)
[2024-02-27] MEDS ORDERED: Ketorolac Tromethamine 30mg Vial IV ONE (11:30)
[2024-02-27 12:59] LABS: Source, Urine Clean Catch
[2024-02-27 13:02] LABS: Appearance, Urine Clear (Clear); Bilirubin, Urine Neg (Neg); Blood, Urine Neg (Neg); Color, Urine Yellow (P-Yellow); Glucose Qualitative, Urine Neg (Neg); Ketones, Urine Neg (Neg); Leukocyte Esterase, Urine Neg (Neg); Nitrite, Urine Neg (Neg); Protein, Urine 1+ (Neg); Specific Gravity, Urine 1.015 (1.003-1.022); Urobilinogen, Urine 1+ (Normal)
[2024-02-27 13:45] VITALS: BP 132/96
[2024-02-27] MEDS ORDERED: ONDA4ODT MM (13:54)
[2024-02-27] MEDS ORDERED: LOPE2C PO (13:54)
== END 2024-02-27 14:02 | disposition home or self-care (01) ==
LOC: ER 10:15
PROVIDERS: Emergency Medicine; Physician Assistant
DX: R10.9 Unspecified abdominal pain (principal); F17.210 Nicotine dependence, cigarettes, uncomplicated
CPT/HCPCS: 74177; 80053; 83690; 85025; 96361; 96374-59; 96375; 99284-25; J1885; J2405; J7030; Q9967

== ENCOUNTER 2024-09-24 08:44 | Emergency (ER) | payer OTHER ==
[~2024-09-24] VITALS: Ht 182.9 cm; Wt 95.2 kg
[~2024-09-24 08:44] MED LIST changes: +LOPE2C PO; +ONDA4ODT MM
[2024-09-24 09:22] VITALS: BP 163/101
[2024-09-24] MEDS ORDERED: GABA100 PO (09:24)
== END 2024-09-24 11:45 | disposition home or self-care (01) ==
LOC: ER 08:44
DX: S16.1XXA Strain of muscle, fascia and tendon at neck level, initial encounter (principal); S39.012A Strain of muscle, fascia and tendon of lower back, initial encounter; W01.0XXA Fall on same level from slipping, tripping and stumbling without subsequent striking against object, initial encounter; F31.9 Bipolar disorder, unspecified; F17.210 Nicotine dependence, cigarettes, uncomplicated
CPT/HCPCS: 72040; 72100; 99283-25

== ENCOUNTER 2025-02-20 09:57 | Emergency (ER) | payer OTHER ==
[~2025-02-20] VITALS: Ht 182.9 cm; Wt 90.7 kg
[~2025-02-20 09:57] MED LIST changes: +GABA100 PO
[2025-02-20] MEDS ORDERED: Ondansetron HCl 2 MG / ML 2ML Vial ONE (10:09)
[2025-02-20 10:35] LABS: BASOPHILS ABSOLUTE AUTO 0.06 K/mm3 (0.00-0.23); BASOPHILS PERCENT AUTO 1 % (0-2); EOSINOPHILS ABSOLUTE AUTO 0.27 K/mm3 (0.00-0.68); EOSINOPHILS PERCENT AUTO 5 % (0-6); Hematocrit 44.8 % (37.0-53.0); Hemoglobin 15.6 g/dL (13.5-17.5); IMMATURE GRAN ABSOLUTE AUTO 0.02 K/mm3 (0.00-0.10); IMMATURE GRAN PERCENT AUTO 0 % (0-1); LYMPHOCYTES ABSOLUTE AUTO 2.56 K/mm3 (0.84-5.20); LYMPHOCYTES PERCENT AUTO 45 % (21-46); MONOCYTES PERCENT AUTO 5 % (4-13); Mean Corpuscular HGB 30.1 pg (26.0-34.0); Mean Corpuscular HGB Conc 34.8 g/dL (31.5-36.5); Mean Corpuscular Volume 86 fL (80-100); Mean Platelet Volume 9.2 fL (9.1-12.4); NEUTROPHILS PERCENT AUTO 44 % (41-73); Platelet Count 242 K/mm3 (150-400); RDW Coefficient Variation 12.4 % (11.7-14.2); RDW Standard Deviation 39.3 fL (35.1-46.3); Red Blood Cell Count 5.19 M/mm3 (4.30-5.90); White Blood Cell Count 5.71 K/mm3 (4.00-11.30)
[2025-02-20] MEDS ORDERED: Ondansetron HCl 2 MG / ML 2ML Vial IV ONE (10:40)
[2025-02-20] MEDS ORDERED: buprenorphine HCL 2 MG TAB.SUBL SL ONE (10:40)
[2025-02-20 11:00] LABS: Albumin, Blood 3.8 g/dL (3.4-5.0); Albumin/Globulin Ratio 0.9 (0.8-1.8); Bilirubin, Total 0.6 mg/dL (0.1-1.0); Bun/Creatinine Ratio 18.7 (12.0-20.0); Creatinine, Blood 0.96 mg/dL (0.60-1.20); Globulin, Blood 4.1 g/dL (2.2-4.0); Potassium, Blood 3.8 mmol/L (3.5-5.5); Total Protein, Blood 7.9 g/dL (6.4-8.2)
[2025-02-20] MEDS ORDERED: buprenorphine HCL 8 MG TAB.SUBL SL ONE (11:05)
[2025-02-20] MEDS ORDERED: SUBOXONE 8 MG-1 EACH SL (12:18)
[2025-02-20] MEDS ORDERED: RX Prepack 2 Sprays Naloxone HCL 4 MG/SPRAY UD ONE (12:20)
[2025-02-20 12:30] VITALS: BP 137/101
== END 2025-02-20 12:34 | disposition home or self-care (01) ==
LOC: ER 09:57
PROVIDERS: Emergency Medicine
DX: T40.411A Poisoning by fentanyl or fentanyl analogs, accidental (unintentional), initial encounter (principal); M79.605 Pain in left leg; Z79.891 Long term (current) use of opiate analgesic; F17.210 Nicotine dependence, cigarettes, uncomplicated
CPT/HCPCS: 80053; 85025; 93005; 93010; 96374; 99285-25; A9270; J0571; J2405

== ENCOUNTER 2025-09-05 20:04 | Emergency (ER) | payer OTHER ==
[~2025-09-05] VITALS: Ht 182.9 cm; Wt 90.7 kg
[~2025-09-05 20:04] MED LIST changes: +SUBOXONE 8 MG-1 EACH SL
[2025-09-05 21:19] LABS: BASOPHILS ABSOLUTE AUTO 0.07 K/mm3 (0.00-0.23); BASOPHILS PERCENT AUTO 1 % (0-2); EOSINOPHILS ABSOLUTE AUTO 0.28 K/mm3 (0.00-0.68); EOSINOPHILS PERCENT AUTO 5 % (0-6); Hematocrit 40.8 % (37.0-53.0); Hemoglobin 14.1 g/dL (13.5-17.5); IMMATURE GRAN ABSOLUTE AUTO 0.02 K/mm3 (0.00-0.10); IMMATURE GRAN PERCENT AUTO 0 % (0-1); LYMPHOCYTES ABSOLUTE AUTO 1.88 K/mm3 (0.84-5.20); LYMPHOCYTES PERCENT AUTO 36 % (21-46); MONOCYTES ABSOLUTE AUTO 0.44 K/mm3 (0.16-1.47); MONOCYTES PERCENT AUTO 9 % (4-13); Mean Corpuscular HGB Conc 34.6 g/dL (31.5-36.5); Mean Corpuscular Volume 87 fL (80-100); NEUTROPHILS ABSOLUTE AUTO 2.50 K/mm3 (1.96-9.15); NEUTROPHILS PERCENT AUTO 48 % (41-73); NRBC ABSOLUTE 0.00 K/mm3 (0.00-0.02); NRBC Auto 0.0 /100 WBC (0.0-0.2); Platelet Count 244 K/mm3 (150-400); RDW Coefficient Variation 12.3 % (11.7-14.2); RDW Standard Deviation 39.1 fL (35.1-46.3)
[2025-09-05 21:27] LABS: Source, Urine Clean Catch
[2025-09-05 21:32] LABS: Bilirubin, Urine Neg (Neg); Glucose Qualitative, Urine Neg (Neg); Ketones, Urine Neg (Neg); Leukocyte Esterase, Urine Neg (Neg); Protein, Urine Neg (Neg); Specific Gravity, Urine 1.010 (1.003-1.022); Urobilinogen, Urine NORM (Normal)
[2025-09-05 21:33] LABS: Alanine Aminotransfer (ALT/SGP 32.0 U/L (12-78); Albumin, Blood 3.9 g/dL (3.4-5.0); Albumin/Globulin Ratio 1.0 (0.8-1.8); Anion Gap 4.0 mmol/L (3-11); Aspartate Aminotrans (AST/SGOT 25.0 U/L (12-37); Bilirubin, Total 0.3 mg/dL (0.1-1.0); Blood Urea Nitrogen 23.0 mg/dL (8-24); CO2, Blood 33.0 mmol/L (21-32); Calcium, Blood 9.8 mg/dL (8.5-10.1); Chloride, Blood 104.0 mmol/L (98-108); Creatinine, Blood 1.1 mg/dL (0.60-1.20); Globulin, Blood 3.8 g/dL (2.2-4.0); Glucose, Blood 87.0 mg/dL (70-99); Potassium, Blood 4.2 mmol/L (3.5-5.5); Sodium, Blood 137.0 mmol/L (136-145); Total Protein, Blood 7.7 g/dL (6.4-8.2)
[2025-09-05 21:45] LABS: Color, Urine Pale Yellow (P-Yellow)
[2025-09-05 21:46] LABS: Red Blood Cells, Urine Not Seen /hpf (0-2); White Blood Cells, Urine 0-2 /hpf (0-5)
[2025-09-05] MEDS ORDERED: NS 1,000 ML IV SCH (22:25)
[2025-09-05] MEDS ORDERED: METH40 PO (22:37)
[2025-09-05] MEDS ORDERED: Morphine Sulfate 4 MG/1 ML Injection IV ONE (22:55)
[2025-09-05] MEDS ORDERED: Ondansetron HCl 2 MG / ML 2ML Vial IV ONE (22:55)
[2025-09-05 23:17] LABS: Magnesium, Blood 2.2 mg/dL (1.6-2.4)
[2025-09-06 01:30] VITALS: BP 124/79
== END 2025-09-06 01:40 | disposition home or self-care (01) ==
LOC: ER 20:04
PROVIDERS: Student in an Organized Health Care Education/Training Program
DX: K59.00 Constipation, unspecified (principal); R10.84 Generalized abdominal pain; E86.0 Dehydration; F17.210 Nicotine dependence, cigarettes, uncomplicated; Z79.891 Long term (current) use of opiate analgesic
CPT/HCPCS: 51798; 74177; 80053; 81001; 82272; 83690; 83735; 85025; 96374-59; 96375; 99284-25; J2270; J2405; J7030; Q9967

== ENCOUNTER 2025-09-17 20:14 | Emergency (ER) | payer OTHER ==
[~2025-09-17] VITALS: Ht 182.9 cm; Wt 90.7 kg
[~2025-09-17 20:14] MED LIST changes: +METH40 PO
[2025-09-17 20:45] VITALS: BP 153/97
== END 2025-09-17 22:10 | disposition home or self-care (01) ==
LOC: ER 20:14
DX: M25.521 Pain in right elbow (principal); F17.210 Nicotine dependence, cigarettes, uncomplicated; Z79.891 Long term (current) use of opiate analgesic
CPT/HCPCS: 73080; 99283-25

== ENCOUNTER 2025-09-19 09:05 | Emergency (ER) | payer OTHER ==
[~2025-09-19] VITALS: Ht 182.9 cm; Wt 90.7 kg
[2025-09-19] MEDS ORDERED: CEPH500 PO (09:39)
[2025-09-19 09:45] VITALS: BP 135/95
[2025-09-19] MEDS ORDERED: BACTRIM DS TAB1 EAC1 PO (09:48)
== END 2025-09-19 09:55 | disposition home or self-care (01) ==
LOC: ER 09:05
DX: L03.113 Cellulitis of right upper limb (principal); Z59.89 Other problems related to housing and economic circumstances; F17.210 Nicotine dependence, cigarettes, uncomplicated; Z79.2 Long term (current) use of antibiotics; Z79.899 Other long term (current) drug therapy
CPT/HCPCS: 99283